=== PATIENT | female | born 1995 | race Two or more races ===

== ENCOUNTER 2017-04-29 13:40 | Emergency (ER) | payer OTHER ==
[~2017-04-29] VITALS: Ht 157.5 cm; Wt 99.8 kg
[2017-04-29] MEDS ORDERED: NKM (14:02)
--- NOTE | 2017-04-29 14:19 | Emergency Room Report ---
History of Present Illness General Chief Complaint: Lower Extremity Injury Source: Patient Present Illness HPI patient is a 21-year-old female who stepped on a nail through her shoe yesterday sustaining an injury to the right foot. She states it bled and she cleaned it at home. She is still having pain today and came to the emergency room for further care. She denies . She states her last tetanus shot was 4 years ago. She is allergic to penicillin. Allergies: Uncoded Allergies: PENICILLIN (Allergy, Unknown, 04/29/17) Patient History Past Medical History: none Pertinent Family History: none Last Menstrual Period: "Beggining of last month" Irregular Now: No Nursing Documentation-PMH Past Medical History: No Stated History Review of Systems Constitutional: Reports: no symptoms, Denies: chills, fever Cardiovascular: Denies: edema Musculoskeletal: Reports: see HPI Neurological: Denies: focal weakness, numbness, paresthesia, tingling Physical Exam Vital Signs Date Time Temp Pulse Resp B/P Pulse Ox O2 Delivery O2 Flow Rate FiO2 04/29/17 13:56 98.2 83 16 116/84 96 Room Air Sp02 EP Interpretation: reviewed, normal General Appearance: normal inspection, well appearing, no apparent distress Musculoskeletal: normal range of motion, non-tender - mild TTP right heel Neurologic: sensory intact Skin: other - puncture wound to right heel, no active bleeding, mild TTP Medical Decision Making Other X-Ray Diagnostic Results Other X-Ray Diagnostic Results : # of Views/Limited Vs Complete: 3 View Indication: Other - Foreign BOdy EP Interpretation: Yes Interpretation: other - No FB, No bony abnormality, normal soft tissue structures Interpreting ER Provider: electronically signed by Dr. Sung Last Vital Signs Date Time Temp Pulse Resp B/P Pulse Ox O2 Delivery O2 Flow Rate FiO2 04/29/17 13:56 98.2 83 16 116/84 96 Room Air Disposition: HOME, SELF-CARE Condition: Stable Scripts Ciprofloxacin Hcl* (CIPROFLOXACIN HCL*) 500 Mg Tablet 500 MG ORAL EVERY 12 HOURS for 10 Days, #20 TAB 0 Refills Prov: KAYLYNN SUNG 04/29/17 Patient Instructions: Puncture Wound KAYLYNN SUNG Apr 29, 2017 14:19
[2017-04-29] MEDS ORDERED: CIPROFLOXACIN500 M2 ORAL (15:10)
[2017-04-29 15:23] VITALS: BP 116/84
--- NOTE | 2017-04-30 13:30 | Diagnostic Imaging Report ---
Indication: Stepped on nail Technique: 3 views left foot Comparison: none Findings: No acute fracture. No dislocations. No radiopaque foreign body. No definite bony destruction. Impression: Negative
== END 2017-04-29 15:23 | disposition home or self-care (01) ==
LOC: EMR 14:30
DX: S91.331A Puncture wound without foreign body, right foot, initial encounter (principal); W22.8XXA Striking against or struck by other objects, initial encounter; Y92.69 Other specified industrial and construction area as the place of occurrence of the external cause; Y99.0 Civilian activity done for income or pay; Z88.0 Allergy status to penicillin
CPT/HCPCS: 99283